=== PATIENT | female | born 1930 | race Caucasian/White ===

== ENCOUNTER 2017-12-12 20:22 | Observation (INO) | payer MEDICARE ==
[2017-12-12] MEDS ORDERED: OLANZapine 5 MG Tab PO ONE (22:14)
[2017-12-13] MEDS ORDERED: Haloperidol Lactate 5 MG/ML SDV IM ONE (00:55)
[2017-12-13] MEDS ORDERED: Haloperidol Lactate 5 MG/ML SDV ONE (00:56)
[2017-12-13] MEDS ORDERED: diphenhydrAMINE 25 MG Cap PO ONE (01:38)
[2017-12-13] MEDS ORDERED: metFORMIN 500 MG Tab PO ONE (01:44)
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
[2017-12-13] MEDS ORDERED: chlorproMAZINE 50 MG/2 ML Amp IM ONE (04:22)
[2017-12-13] MEDS ORDERED: LORazepam 2 MG/ML SDV IM PRN (05:03)
[2017-12-13] MEDS ORDERED: chlorproMAZINE 50 MG/2 ML Amp IM PRN (05:04)
[2017-12-13] MEDS: glipiZIDE 5 MG Tab PO SCH ×3 (08:41→20:53)
[2017-12-13] MEDS: Metoprolol Tartrate 50 MG Tab PO SCH ×2 (08:41→21:36)
[2017-12-13] MEDS: Mesalamine 800 MG Tab.CR PO SCH ×2 (08:44→22:04)
[2017-12-13] MEDS ORDERED: Haloperidol Lactate 5 MG/ML SDV IVPUSH PRN (20:28)
[2017-12-13] MEDS ORDERED: Acetaminophen 325 MG Tab PO PRN (20:28)
[2017-12-13] MEDS ORDERED: Haloperidol Lactate 5 MG/ML SDV IM PRN (20:28)
[2017-12-13] MEDS ORDERED: Ondansetron 4 MG/2 ML SDV IV PRN (20:28)
[2017-12-13] MEDS ORDERED: Ondansetron 4 MG Tab.DIS PO PRN (20:28)
[2017-12-13] MEDS ORDERED: oxyCODONE 5 MG Tab PO PRN (20:28)
[2017-12-13] MEDS ORDERED: Sodium Chloride 0.9% 1,000 ML IV SCH (20:28)
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
[2017-12-13] MEDS ORDERED: MESALAMINE 800 MG PO SCH (21:00)
[2017-12-13] MEDS ORDERED: traZODone 50 MG Tab PO SCH (21:00)
[2017-12-13] MEDS ORDERED: Temazepam 15 MG Cap PO SCH (21:00)
[2017-12-13] MEDS ORDERED: Formoterol/Mometasone 200-5 MCG 8.8 GM Inhaler IH SCH (21:00)
[2017-12-13] MEDS ORDERED: Melatonin 3 MG Tab PO SCH (21:00)
[2017-12-13] MEDS ORDERED: Divalproex Sodium Delayed-Release 125 MG Cap.Sprink PO SCH (21:30)
[2017-12-13] MEDS: LORazepam 0.5 MG Tab PO SCH (21:35)
[2017-12-13] MEDS: metFORMIN 500 MG Tab PO SCH (21:37)
[2017-12-13] MEDS: Insulin Aspart 100 Units/ML 3 ML Pen SUBCUT SCH (21:38)
[2017-12-14] MEDS ORDERED: metFORMIN 500 MG Tab PO SCH (08:00)
[2017-12-14] MEDS ORDERED: Formoterol/Mometasone 200-5 MCG 8.8 GM Inhaler IH SCH (08:00)
[2017-12-14] MEDS ORDERED: Enoxaparin 30 MG/0.3 ML Syringe SUBCUT SCH (09:00)
[2017-12-14] MEDS ORDERED: glipiZIDE 5 MG Tab.ER PO SCH (09:00)
[2017-12-14] MEDS ORDERED: Levothyroxine 50 MCG Tab PO SCH (09:00)
[2017-12-14] MEDS: Insulin Aspart 100 Units/ML 3 ML Pen SUBCUT SCH ×2 (09:17→12:17)
[2017-12-14] MEDS: LORazepam 0.5 MG Tab PO SCH ×2 (09:27→13:50)
[2017-12-14] MEDS: Levothyroxine 50 MCG Tab PO SCH ×2 (09:40→12:19)
[2017-12-14] MEDS: metFORMIN 500 MG Tab PO SCH ×2 (09:40→12:13)
[2017-12-14] MEDS: Metoprolol Succinate 25 MG Tab.ER PO SCH ×2 (09:45→12:19)
--- NOTE | 2017-12-14 11:31 | PCM.DCSUM1 ---
Discharge Summary - Hospital Course Brief History: 87-year-old female with history of diabetes mellitus, Alzheimer' s dementia who presented after an episode of found agitation. She was admitted for observation and disposition planning. Diagnosis: Stroke: No - Discharge Data Discharge Date: 12/14/17 Discharge Disposition: Home, Self-Care 01 Condition: Fair - Discharge Diagnosis/Problem(s) (1) Dementia with behavioral disturbance SNOMED Code(s): 0075225732320 ICD Code: F03.91 - UNSPECIFIED DEMENTIA WITH BEHAVIORAL DISTURBANCE Status : Acute Priority: High Current Visit: Yes Qualifiers: Dementia type: unspecified type Qualified Code(s): F03.91 - Unspecified dementia with behavioral disturbance (2) Diabetes type 2, uncontrolled SNOMED Code(s): 18383957, 116189060 ICD Code: E11.65 - TYPE 2 DIABETES MELLITUS WITH HYPERGLYCEMIA Status: Acute Priority: Medium Current Visit: Yes Qualifiers: 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 She was kept in the emergency room overnight with the initial plan for her to go to the senior behavioral unit. Since presentation to the emergency room she has had no significant behavior issues. She has not required any as needed medications to help with agitation or anxiety. On the evening of admission the plan had been for discharge to prison but unfortunately they could not accommodate her due to the late hour of the day at the time of plan for admission. She was admitted to the hospital for observation with the plan to go to the prison today, the day of discharge. Overnight there were no acute issues. She did have some hyperglycemia which did improve with as needed supplemental insulin. Discussion with her son Ole and his Edelmira on the morning of discharge was held. We discussed going to the prison versus going home with the family. They felt that the agitation that led to the emergency room presentation was an isolated incident. She has not had recent issues with behavior troubles. After long discussion we decided that she will be going home with family. He did not feel that prison admission was warranted at this time because it was also a new unfamiliar place with unfamiliar people. They felt like she would be more comfortable in her cabin which was familiar surrounded by family. I did recommend that they initiate melatonin at bedtime to help regulate sleep-wake cycle and hopefully avoid any sundowning. I did also provide a small prescription for risperidone to use as needed if there were behavior issues. They're comfortable with this plan. They will contact me if there are any difficulties after they are discharge from the hospital. The cause for her agitation was not entirely clear. There is no evidence for infection. There have been no recurrent issues with agitation during the hospital stay. The family does not report previous difficulties with behavior so hopefully this was an isolated event. - Patient Instructions Diet: Usual Diet as Tolerated Activity: As Tolerated Showering/Bathing: May Shower Notify Provider of: Fever, Increased Pain, Nausea and/or Vomiting Other/Special Instructions: 1. You were in the hospital for management of agitation related to Alzheimer's dementia. Your condition has been improving. I would recommend that you take 5 or 10 mg of melatonin at bedtime to help regulate your sleep/wake cycle. I have provided a prescription for risperidone. You can take 0.5 mg daily as needed for increasing agitation/anxiety. 2. If there are difficulties that arise after you return home, please call and explained to them that you were a patient here and would like to speak with Dr. Brand. I would be happy to answer any questions you may have or assist with any difficulties. - Discharge Plan Prescriptions/Med Rec: risperiDONE [RisperiDAL ODT] 0.5 mg PO DAILY PRN #10 tab.dis PRN Reason: Agitation Home Medications: Home Meds metFORMIN [Glucophage] 500 mg PO BID 04/14/13 [History] Levothyroxine [Synthroid] 50 mcg PO DAILY 12/13/17 [History] Metoprolol Succinate 25 mg PO DAILY 12/13/17 [History] risperiDONE [RisperiDAL ODT] 0.5 mg PO DAILY PRN #10 tab.dis 12/14/17 [Rx] Patient Handouts: Dementia Caregiver Guide, Risperidone tablets Referrals: Helio Bauman MD [Primary Care Provider] - (f/u as needed after the hospital stay ) - Discharge Summary/Plan Comment DC Time >30 min.: Yes (40 - coordinating safe discharge plan) - Patient Data Vitals - Most Recent: Last Vital Signs Temp 35.1 C L 12/14/17 08:30 Pulse 88 12/14/17 04:00 Resp 16 12/14/17 08:30 BP 130/104 H 12/14/17 08:30 Pulse Ox 90 L 12/14/17 04:00 Weight - Most Recent: 70.307 kg I&O - Last 24 hours: Intake & Output 12/13/17 12/14/17 12/14/17 22:59 06:59 14:59 Intake Total 480 360 Balance 480 360 Lab Results - Last 24 hrs: Laboratory Results - last 24 hr 12/14/17 12/14/17 12/14/17 Range/Units 05:43 05:45 05:45 WBC 9.4 (4.5-11.0) K/uL RBC 4.85 (3.30-5.50) M/uL Hgb 14.8 (12.0-15.0) g/dL Hct 43.9 (36.0-48.0) % MCV 91 (80-98) fL MCH 31 (27-31) pg MCHC 34 (32-36) % Plt Count 321 (150-400) K/uL Neut % (Auto) 44 (36-66) % Lymph % (Auto) 42 (24-44) % Stanley % (Auto) 11 H (2-6) % Eos % (Auto) 2 (2-4) % Baso % (Auto) 1 (0-1) % Sodium 141 (140-148) mmol/L Potassium 4.3 (3.6-5.2) mmol/L Chloride 105 (100-108) mmol/L Carbon Dioxide 28 (21-32) mmol/L Anion Gap 8.4 (5.0-14.0) mmol/L BUN 18 (7-18) mg/dL Creatinine 1.2 H (0.6-1.0) mg/dL Est Cr Clr Drug Dosing 29.60 mL/min Estimated GFR (MDRD) 43 L (>60) Glucose 274 H (74-106) mg/dL Calcium 8.5 (8.5-10.1) mg/dL TSH, Ultra Sensitive 2.630 (0.358-3.740) uIU/mL Med Orders - Current: Current Medications Acetaminophen (Tylenol) 650 mg PO Q4H PRN PRN Reason: Pain (Mild 1-3)/fever Divalproex Sodium (Depakote Sprinkle) 250 mg PO BEDTIME [facility] Enoxaparin Sodium (Lovenox) 30 mg SUBCUT DAILY [facility] Last Admin: 12/14/17 09:19 Dose: 30 mg Glipizide (Glucotrol Xl) 10 mg PO DAILY [facility] Last Admin: 12/14/17 09:45 Dose: Not Given Insulin Aspart (Novolog) 0 unit SUBCUT QIDACANDBED [facility]; Protocol Last Admin: 12/14/17 09:17 Dose: 6 units Levothyroxine Sodium (Synthroid) 50 mcg PO ACBREAKFAST [facility] Last Admin: 12/14/17 09:40 Dose: Not Given Lorazepam (Ativan) 0.5 mg PO TID [facility] Last Admin: 12/14/17 09:27 Dose: 0.5 mg Melatonin (Melatonin) 9 mg PO BEDTIME [facility] Last Admin: 12/13/17 21:37 Dose: 9 mg Metformin HCl (Glucophage) 500 mg PO BIDMEALS [facility] Last Admin: 12/14/17 09:40 Dose: Not Given Metoprolol Succinate (Toprol Xl) 25 mg PO DAILY [facility] Last Admin: 12/14/17 09:45 Dose: Not Given Mometasone Furoate/Formoterol Fumar (Dulera 200-5 Mcg) 2 puff IH BIDRT [facility] Last Admin: 12/14/17 09:19 Dose: 2 puff Ondansetron HCl (Zofran Odt) 4 mg PO Q6H PRN PRN Reason: Nausea able to take PO Ondansetron HCl (Zofran) 4 mg IV Q4H PRN PRN Reason: Nausea/Vomiting Oxycodone HCl (Oxycodone) 5 mg PO Q4H PRN PRN Reason: Pain (moderate 4-6) Temazepam (Restoril) 15 mg PO BEDTIME [facility] Last Admin: 12/13/17 21:37 Dose: 15 mg Trazodone HCl (Trazodone) 100 mg PO BEDTIME [facility] Last Admin: 12/13/17 21:37 Dose: 100 mg Discontinued Medications Chlorpromazine HCl (Thorazine) 25 mg IM ONETIME ONE Stop: 12/13/17 04:23 Last Admin: 12/13/17 04:31 Dose: 25 mg Chlorpromazine HCl (Thorazine) 25 mg IM QID PRN PRN Reason: agitation or restlessness Diphenhydramine HCl (Benadryl) 50 mg PO ONETIME ONE Stop: 12/13/17 01:39 Last Admin: 12/13/17 01:44 Dose: 50 mg Divalproex Sodium (Depakote Sprinkle) 250 mg PO DAILY [facility] Last Admin: 12/13/17 21:38 Dose: 250 mg Glipizide (Glucotrol) 5 mg PO DAILY [facility] Last Admin: 12/13/17 20:53 Dose: Not Given Haloperidol (Haldol) 5 mg PO BEDTIME [facility] Haloperidol Lactate (Haldol) 5 mg IM ONETIME ONE Stop: 12/13/17 00:56 Last Admin: 12/13/17 01:07 Dose: 5 mg Haloperidol Lactate (Haldol) Confirm Administered Dose 5 mg .ROUTE .STK-MED ONE Stop: 12/13/17 00:57 Last Admin: 12/13/17 01:08 Dose: Not Given Haloperidol Lactate (Haldol) 1 mg IM Q8H PRN PRN Reason: Agitation Haloperidol Lactate (Haldol) 1 mg IVPUSH Q8H PRN PRN Reason: Agitation Sodium Chloride (Normal Saline) 1,000 mls @ 125 mls/hr IV ASDIRECTED [facility] Levothyroxine Sodium (Synthroid) mcg PO DAILY [facility] Lorazepam (Ativan) 1 mg IM Q4H PRN PRN Reason: anxiety restlessness Mesalamine (Asacol Hd) 800 mg PO BID [facility] Last Admin: 12/13/17 22:04 Dose: Not Given Metformin HCl (Glucophage) 500 mg PO ONETIME ONE Stop: 12/13/17 01:45 Last Admin: 12/13/17 02:01 Dose: 500 mg Metoprolol Tartrate (Lopressor) 50 mg PO BID [facility] Last Admin: 12/13/17 21:36 Dose: Not Given Mometasone Furoate/Formoterol Fumar (Dulera 200-5 Mcg) 2 puff IH BID [facility] Last Admin: 12/13/17 21:37 Dose: 2 puff Non-Formulary Medication (Mesalamine [Asacol]) 800 mg PO BID [facility] Last Admin: 12/13/17 22:04 Dose: Not Given Olanzapine (Zyprexa) 5 mg PO ONETIME ONE Stop: 12/12/17 22:15 Last Admin: 12/13/17 00:45 Dose: 5 mg - Exam Quality Assessment: Denies: Supplemental Oxygen General: Reports: Alert, Cooperative, No Acute Distress. Denies: Oriented Lungs: Reports: Clear to Auscultation, Normal Respiratory Effort Cardiovascular: Reports: Regular Rate, Regular Rhythm, Murmurs GI/Abdominal Exam: Soft, No Distention Extremities: No Pedal Edema Skin: Reports: Warm, Dry Psy/Mental Status: Reports: Alert. Denies: Anxious
[2017-12-14] MEDS ORDERED: Insulin Aspart 100 Units/ML 3 ML Pen SUBCUT ONE (11:49)
[2017-12-14 13:54] VITALS: BP 152/70
[2017-12-14] MEDS ORDERED: Divalproex Sodium Delayed-Release 125 MG Cap.Sprink PO SCH (21:00)
[2017-12-14] MEDS ORDERED: Haloperidol 5 MG Tab PO SCH (21:00)
== END 2017-12-14 15:00 | disposition home or self-care (01) ==
LOC: JP.ED 20:22 → JP.MS 12-13 18:59 → EEVIPCON 12-13 18:59 → JP.ED 12-13 19:46
PROVIDERS: ADMIT Internal Medicine; ATTEND Internal Medicine
DX: F03.91 Unspecified dementia, unspecified severity, with behavioral disturbance (principal); E11.65 Type 2 diabetes mellitus with hyperglycemia; Z79.84 Long term (current) use of oral hypoglycemic drugs; Z79.899 Other long term (current) drug therapy; Z91.030 Bee allergy status
CPT/HCPCS: 36415; 80048; 80053; 81001; 82962; 84443; 84484; 85025; 85027; 96372; 99285; A9270; G0378; G0480; J1630; J1650; J3230